=== PATIENT | male | born 1930 | race Caucasian/White ===

== ENCOUNTER → 2016-10-31 | Outpatient (REF) | LOC: ZLAB.WCH 18:14 | DX: Z01.89 Encounter for other specified special examinations (principal) ==

== ENCOUNTER → 2017-09-02 | Outpatient (REF) ==
[2017-09-02 16:53] LABS: THYROID STIMULATING HORMONE 2.62 uIU/mL (0.465-4.680)
[2017-09-02 18:04] LABS: PSA-TOTAL 7.74 ng/mL (0-4)
== END ==
LOC: ZLAB.WCH 16:06
PROVIDERS: Internal Medicine
DX: Z01.89 Encounter for other specified special examinations (principal)
CPT/HCPCS: G0103

== ENCOUNTER → 2018-03-17 | Outpatient (REF) | LOC: ZLAB.WCH 18:13 | DX: Z01.89 Encounter for other specified special examinations (principal) | CPT/HCPCS: G0103 ==

== ENCOUNTER 2019-10-07 00:02 | Inpatient (IN) | payer MEDICARE, OTHER ==
[~2019-10-07] VITALS: Ht 188 cm; Wt 103.1 kg
[2019-10-08] VITALS (13 sets, daily range): BP systolic 91–149; BP diastolic 49–79; PULSE 11–106; TEMP 97.7–99.6
[2019-10-08] MEDS ORDERED: D3-5050000 IU PO (01:13)
[2019-10-08] MEDS ORDERED: PROSCAR 5MG5 MG PO (01:14)
[2019-10-08] MEDS ORDERED: LINZESS145CAP PO ×2 (01:15→01:18)
[2019-10-08] MEDS ORDERED: PRILOSEC 20MG20 MG PO (01:15)
[2019-10-08] MEDS ORDERED: LEXAPRO 5MG5 MG PO (01:16)
[2019-10-08] MEDS ORDERED: ATIVAN 0.50.5 MG/TAB PO (01:16)
[2019-10-08] MEDS ORDERED: MIRALAX PA17 GM/Dose PO (01:16)
[2019-10-08] MEDS ORDERED: XALATAN EYE DROPS OU (01:17)
[2019-10-08] MEDS ORDERED: ASPIRIN 81M81 MG/TA2 PO (01:17)
[2019-10-08] MEDS ORDERED: SYNTHROID0.05 MG/TA PO (01:17)
[2019-10-08] MEDS ORDERED: TYLENOL 325MG325 MG PO (01:18)
[2019-10-08] MEDS ORDERED: MILK OF MA400 MG/52 PO (01:19)
[2019-10-08] MEDS ORDERED: ALMACONE 360 M360 ML PO (01:19)
[2019-10-08] MEDS ORDERED: KAOPECTATE262 MG/15 PO (01:19)
[2019-10-08 01:49] LABS: PH 5 (5-8); URINE APPEARANCE Clear; URINE COLOR Amber
[2019-10-08 01:50] LABS: COLLECTION METHOD CLEAN CATCH; URINE BILIRUBIN Negative (NEGATIVE); URINE BLOOD 1+ (NEGATIVE); URINE GLUCOSE Negative (NEGATIVE); URINE KETONE Negative (NEGATIVE); URINE LEUKOCYTE ESTERASE Negative (NEGATIVE); URINE NITRATE Negative (NEGATIVE); URINE PROTEIN(semi-quant) 1+ (NEGATIVE); URINE UROBILINOGEN Negative (NEGATIVE)
[2019-10-08 01:54] LABS: SQUAMOUS EPITHELIAL None Seen /hpf; URINE BACTERIA Rare /hpf
--- NOTE | 2019-10-08 05:27 | NUR ---
Patient arrived via EMS with daughter following closely behind. Patient noted to be alert to self only and when he arrived is in a lot of pain. 2mg IV morphine adminsitered per Destiny Ann's order. Additional 2mg given d/t no relief with first dose. This was effective. Trivedi catheter placed with paula blood return, then chip urine after this. 16 FR Coude was placed. IV noted to right forearm. IVF continue per orders. Information provided by daughter and paperwork. Daughter states patient has dementia and lives in a memory long term. Patient pleasant with staff and has slept well tonight. Bed alarms on. Will continue to monitor patient.
[2019-10-08 06:26] LABS: BASO % 0.2 % (0.0-2.0); GRAN # 8.8 (1.4-6.5); GRAN % 83.1 % (42.2-75.2); HEMOGLOBIN 14.6 g/dl (13.5-18.0); LYMPH # 0.9 (1.2-3.4); MEAN CELL VOLUME 95 fl (80.0-100.0); MEAN CORPUSCULAR HEMOGLOBIN 32 pg (27.0-31.0); MEAN CORPUSCULAR HGB CONC 33 g/dl (33.0-37.0); MEAN PLATELET VOLUME 9.9 fl (7.4-10.4); MONO # 0.9 (0.1-0.6); MONO % 8.1 % (1.7-9.3); PLATELET COUNT 199 K/mm3 (130-400); RED BLOOD COUNT 4.63 M/mm3 (4.20-5.60)
[2019-10-08 06:41] LABS: ALBUMIN 3.4 gm/dL (3.5-5.0); BILIRUBIN,TOTAL 1.2 mg/dL (0.0-1.0); CALCIUM 9.8 mg/dL (8.4-10.2); CREATININE, serum 1.73 (0.66-1.25); POTASSIUM 4.1 mmol/L (3.4-5.0); TOTAL PROTEIN 6.2 gm/dL (6.4-8.2)
[2019-10-08 06:44] LABS: INR 1.3 (0.8-3.0); PROTHROMBIN TIME 14.2 SECONDS (9.7-12.8)
--- NOTE | 2019-10-08 07:29 | NUR ---
REPORT FROM CRAIG NORRIS.
[2019-10-08 10:04] LABS: PRE ALBUMIN 15.7 mg/dL (17.6-36.0)
--- NOTE | 2019-10-08 11:48 | NUR ---
TELEPHONE CONSENT FOR SURGERY OBTAINED FROM MICHELLE COBB. TWO RNS VERIFIED CONSENT.
--- NOTE | 2019-10-08 12:06 | NUR ---
PATIENT TO SURGERY PER BED WITH GOLDIE. CONSENT ON CHART.
--- NOTE | 2019-10-08 15:33 | NUR ---
The patient is in surgery. ESTHER contacted the patient's daughter Evita, to complete initial intake, left message. ESTHER contacted the patient's son, Doug [phone] to complete inital intake. The patient lives at the [facility] [place]. The patient uses a cane but was needing to transition to a walker. The patient's PCP is Dr. Jacobo and patient receives medications from [facility]. The patient does not have advanced directives in the EMR but Doug states they are completed and designate him and his sister, Evita. ESTHER discussed placement after hospitalization. Doug states that he and Evita spoke about sending the patient to [facility] as first choice. After this discussion Evita contacted ESTHER and second choice is [facility]. Referral sents. [facility] Director reports she would look at the referral and would make a decision on Friday. Awaiting responses.
--- NOTE | 2019-10-08 16:20 | NUR ---
ESTHER attempted to contact DAVINA Baker at [facility] and left a message about referral. Will continue to monitor.
--- NOTE | 2019-10-08 16:28 | NUR ---
PT TO ROOM 327 PER BED WITH REPORT FROM DELON NORRIS PACU @[id number].
--- NOTE | 2019-10-08 17:17 | NUR ---
PT RESTING IN BED PLACED MITS FOR PT PROTECTION HE WAS TRYING TO PULL DRESSING OFF OF HIP.
[2019-10-09] VITALS (7 sets, daily range): BP systolic 108–135; BP diastolic 52–103; PULSE 63–96; TEMP 97.5–98.9
--- NOTE | 2019-10-09 01:53 | NUR ---
PATIENT DOING WELL TONIGHT. WAS VERY DROWSY AT SHIFT CHANGE, FOR THIS REASON ATIVAN WAS HELD. PATIENT BECAME INCREASINGLY AGITATED AROUND 0000 AND ATIVAN WAS THEN GIVEN. PATIENT IS CURRENTLY RESTING CALMLY IN BED. BULKY DRESSING TO L HIP IS CDI. IVF INFUSING TO R FA WITHOUT ISSUE. ORELLANA TO DEPENDENT DRAINAGE DRAINING CLEAR HUA URINE. NO FURTHER NEEDS AT THIS TIME. WILL CONTINUE TO MONITOR.
--- NOTE | 2019-10-09 08:00 | NUR ---
Patient resting in bed at this time. Assisted ortho PA to change dressing on left hip, patient did not tolerate procedure well, administered iv pain medication per order. Trivedi in place draining clear chip urine. IVF continue. Patient refuses PO intake. Bed alarm on, frequent visual checks.
[2019-10-09 08:42] LABS: CREATININE, serum 1.18 (0.66-1.25); POTASSIUM 4.1 mmol/L (3.4-5.0)
[2019-10-09 08:49] LABS: BASO % 0.2 % (0.0-2.0); GRAN # 6.8 (1.4-6.5); GRAN % 75.2 % (42.2-75.2); LYMPH # 1.3 (1.2-3.4); LYMPH % 14.3 % (20.0-51.0); MEAN CELL VOLUME 97 fl (80.0-100.0); MEAN CORPUSCULAR HGB CONC 32 g/dl (33.0-37.0); MEAN PLATELET VOLUME 10.3 fl (7.4-10.4); MONO # 0.9 (0.1-0.6); MONO % 9.7 % (1.7-9.3); PLATELET COUNT 170 K/mm3 (130-400); RED BLOOD COUNT 3.79 M/mm3 (4.20-5.60); REDCELL DISTRIBUTION WIDTH-CV 14.9 % (11.5-14.5)
[2019-10-09 08:52] LABS: HEMATOCRIT 36.8 % (42.0-52.0); HEMOGLOBIN 11.7 g/dl (13.5-18.0); MEAN CORPUSCULAR HEMOGLOBIN 31 pg (27.0-31.0)
--- NOTE | 2019-10-09 15:23 | NUR ---
SW did attempt to fax updates to [facility], however there was only a "in house extension" listed. SW tried calling the number and received a busy signal. Patients daughter Evita [phone] called and inquired about what she needed to do in order to prepare for Patients discharge tomorrow. SW reviewed notes and reported that referrals were sent to [facility] and [facility] bed. Daughter was informed that Sw will continue to follow and provide updates as needed. ESTHER then contacted patients nurse who reported that patient was not a candidate for IPR. Orignal [facility] number provided was not adaquate and so SW contacted [facility] nursing station and was encouraged to fax updates to [phone].
--- NOTE | 2019-10-09 17:49 | NUR ---
Patient has removed several peripherial IVs today, current access is in the left forearm. Patient has recieved PRN pain medication when he appears uncomfortable and says 'ow'. Patient has refused meals today, did eat a few bites of pudding and drank some applejuice, IVF continue. Trivedi remains in place, urine intermittently bloody due to forceful manipulation by patient. Bed alarm on, frequent visual checks, will attempt to get patient to eat again.
[2019-10-10] VITALS (7 sets, daily range): BP systolic 113–137; BP diastolic 61–90; PULSE 64–97; TEMP 97.8–99.1
--- NOTE | 2019-10-10 01:42 | NUR ---
PATIENT IS CONFUSED. DOES NOT RESPOND WELL TO STIMULI. SWINGS HANDS AT STAFF TRYING TO HELP AND TRYS TO PULL AT ORELLANA. MITTS ARE APPLIED. TOOK SCHEDULED MEDICATIONS CRUSHED IN PUDDING. IV MORPHINE GIVEN WHEN PATIENT IS YELLING OUT IN PAIN. PATIENT CONTINUES TO SQUIRM IN BED AND CROSS LEGS EVEN WITH FREQUENT REPOSITIONING. ORELLANA TO DEPENDENT DRAINAGE WITH HUA URINE WITH SEDIMENT NOTED. NO FURTHER NEEDS AT THIS TIME. PATIENT IS RESTING COMFORTABLY AT THIS TIME.
[2019-10-10 07:51] LABS: HEMOGLOBIN 10.6 g/dl (13.5-18.0); MEAN CELL VOLUME 98 fl (80.0-100.0); MEAN CORPUSCULAR HEMOGLOBIN 31 pg (27.0-31.0); MEAN CORPUSCULAR HGB CONC 32 g/dl (33.0-37.0); MEAN PLATELET VOLUME 10.7 fl (7.4-10.4); PLATELET COUNT 160 K/mm3 (130-400)
[2019-10-10 07:59] LABS: HEMATOCRIT 33.3 % (42.0-52.0)
--- NOTE | 2019-10-10 08:00 | NUR ---
Patient resting in bed at this time. Patient is restless and appears to be agitated. Administered pain medication. Attempted to administer PO medications, patient refused the medications and spit them out, will attempt to administer at a later time. Trivedi remains in place draining clear chip urine, IVF continue. Bed alarm on, frequent visual checks.
[2019-10-10 08:02] LABS: CALCIUM 8.8 mg/dL (8.4-10.2); CREATININE, serum 0.96 (0.66-1.25); POTASSIUM 3.9 mmol/L (3.4-5.0)
--- NOTE | 2019-10-10 17:10 | NUR ---
Patient resting in bed at this time. Patient has continued to refuse oral intake today. Bed alarm remains in place, frequent visual checks
--- NOTE | 2019-10-11 01:19 | NUR ---
PATIENT DOING WELL TONIGHT. AROUSES TO STIMULI. FREQUENTLY AGITATED AND HAS MANAGED TO PULL HIMSELF TO SITTING POSITION IN BED WITH LEGS HANGING OFF OF SIDES. PRN MORPHINE GIVEN FOR PAIN PATIENT YELLS OUT IN DISCOMFORT. TEDS APPLIED. IV TO L FA INFUSING LR WITHOUT ISSUE. ORELLANA TO DEPENDENT DRAINAGE WITH HUA URINE WITH CLOTS NOTED. PATIENT DID NOT EAT ANY DINNER. PILLS WERE GIVEN CRUSHED IN PUDDING. TOLERATED THIS OKAY. FREQUENT VISUAL CHECKS, CALL LIGHT WITHIN REACH, BED ALARM ON.
[2019-10-11 04:10] VITALS: BP 115/73; PULSE 73; TEMP 98.2
[2019-10-11 06:27] LABS: BASO % 0.3 % (0.0-2.0); EOS # 0.1 (0.0-0.7); EOS % 1.2 % (0-4.0); GRAN # 4.4 (1.4-6.5); GRAN % 66.8 % (42.2-75.2); HEMOGLOBIN 10.9 g/dl (13.5-18.0); LYMPH # 1.5 (1.2-3.4); LYMPH % 22.9 % (20.0-51.0); MEAN CELL VOLUME 96 fl (80.0-100.0); MEAN CORPUSCULAR HEMOGLOBIN 31 pg (27.0-31.0); MEAN CORPUSCULAR HGB CONC 32 g/dl (33.0-37.0); MEAN PLATELET VOLUME 10.1 fl (7.4-10.4); MONO # 0.5 (0.1-0.6); MONO % 8.3 % (1.7-9.3); PLATELET COUNT 182 K/mm3 (130-400); RED BLOOD COUNT 3.54 M/mm3 (4.20-5.60); REDCELL DISTRIBUTION WIDTH-CV 14.6 % (11.5-14.5)
[2019-10-11 06:37] LABS: HEMATOCRIT 34.1 % (42.0-52.0)
[2019-10-11 06:56] LABS: ALBUMIN 2.7 gm/dL (3.5-5.0); BILIRUBIN,TOTAL 1.2 mg/dL (0.0-1.0); CREATININE, serum 0.84 (0.66-1.25); POTASSIUM 3.3 mmol/L (3.4-5.0); TOTAL PROTEIN 5.4 gm/dL (6.4-8.2)
[2019-10-11 08:08] VITALS: BP 127/85; PULSE 65; TEMP 98.1
--- NOTE | 2019-10-11 08:30 | NUR ---
Patient in bed resting. Confused at baseline. Bed bath and pericare provided. Mitts on. Ecchymosis noted to left hip. Aquacell with drainage present. Dr. Lord in to see patient. Repositioned patient at this time. Trivedi to dependent drainge with chip urine present in bag. Fluids infusing per orders to left forarm IV. Attempted to give patient medications crushed in applesauce without success, patient does not follow instructions. Attempted to get patient to eat breakfast without success. Will continue to monitor.
--- NOTE | 2019-10-11 09:56 | NUR ---
SW faxed updates to [facility].
--- NOTE | 2019-10-11 10:02 | NUR ---
ESTHER attempted to contact Olivia the DON and left message. ESTHER then contacted Odalys she check to see if the referral has been processed. Will continue to follow.
--- NOTE | 2019-10-11 10:22 | NUR ---
Contacted Hanny GUEVARA, patient agitated, pulling at ames catheter attempting to get up out of bed. New order for ativan, medication given. Will continue to monitor.
--- NOTE | 2019-10-11 10:57 | NUR ---
Olivia from [facility] reports they cannot take the patient due to too much dementia. IPR cannot take the patient either. ESTHER contacted Gricelda the nurse at [facility] the [facility]. She reports they can take the patient back with [facility]. Gricelda states the patient had [facility] and could resume with them. ESTHER also discussed sending referrals to other nursing homes for rehab. ESTHER and Gricelda both agreed we should inform the family so they can decide. ESTHER attempted to contact the patient's daughter Evita, left message. ESTHER contacted the patient's son Kirby and spoke with him regarding the denials. Kirby states he and Evita will discuss options then contact ESTHER. Will continue to monitor.
--- NOTE | 2019-10-11 11:22 | NUR ---
The patient's daughter, Evita contacted ESTHER. Evita states she has been in contact the patient's PCP Dr. Jacobo about the patient and his needs. Evita would like to be contacted when the team rounds on the patient. Then she will make a decision. ESTHER informed the patient's nurse. Will continue to monitor.
[2019-10-11 11:41] VITALS: BP 122/59; PULSE 55; TEMP 98.1
[2019-10-11 16:00] VITALS: BP 138/94; PULSE 76; TEMP 97.9
--- NOTE | 2019-10-11 16:49 | NUR ---
Evita contacted ESTHER. The patient is to go back to [facility] the [facility] tomorrow with [facility]. The patient will transition to hospice if he does not respond to PT/OT within a few days. Evita reports that Dr. Jacobo would like the patient to have EMS transport due to the patient's dementia and he would not be safe in the van. ESTHER contacted [facility] and they can transport the patient tomorrow at 1400. Per EMS staff, Due to the necessity insurance should cover the transport. ESTHER contacted Gricelda NORRIS at [facility] and she was agreeable with this time. ESTHER contacted Evita and she was agreeable to this time. ESTHER informed the team. Will continue to follow.
--- NOTE | 2019-10-11 19:32 | NUR ---
Patient has been confused throughout the day. Attempting to get up out of bed pulling on ames catheter and IV line. Medications given per orders. Aquacell to left hip changed due to drainage. Fluids continue infusing per orders. Patient repositioned in bed throughout the day. Ames maintained to dependent drainage with chip urine in bag. Reported off to sales associate cashier.
[2019-10-11 20:02] VITALS: BP 115/69; PULSE 117; TEMP 97.5
[2019-10-12 00:35] VITALS: BP 135/67; PULSE 87; TEMP 96.6
--- NOTE | 2019-10-12 03:23 | NUR ---
Patient has rested well throughout the night. PRN pain medication and ativan given as symptoms arise. Patient noted to be attempting to take his mitts off and was very restless in his bed. Patient now calmed back down and resting well. Trivedi catheter continues to drain clear, yellow urine. Patient is NPO and medications were held at HS. Will continue to monitor patient.
[2019-10-12 05:18] VITALS: BP 130/68; PULSE 71; TEMP 97.8
[2019-10-12 07:47] VITALS: BP 122/79; PULSE 77; TEMP 97.5
--- NOTE | 2019-10-12 08:00 | NUR ---
Patient in bed resting. Assessment confused. IV fluids infusing per orders. Attempted to feed patient applesauce without success. Mitts on. Will continue to monitor.
[2019-10-12 11:46] VITALS: BP 149/69; PULSE 60; TEMP 97.4
[2019-10-12] MEDS ORDERED: RT ALBUTER2.5 MG/0.5 IH (12:47)
[2019-10-12] MEDS ORDERED: ROXANOL 20MG20 MG/ML SL (12:47)
[2019-10-12] MEDS ORDERED: LORAINT SL (12:47)
[2019-10-12] MEDS ORDERED: ATROPINE 2 ML2 ML SL (12:48)
[2019-10-12] MEDS ORDERED: COMPAZINE25 MG/SUPP RC (12:48)
[2019-10-12] MEDS ORDERED: DULCOLAX S10 MG/SUPP RC (12:48)
[2019-10-12] MEDS ORDERED: ARTIFICIAL TEAR15 M7 OP (12:48)
--- NOTE | 2019-10-12 13:06 | NUR ---
A pallative care consult was ordered. Kalyani Cruz, pallative care nurse reports that was decided that the patient would go back to [facility] the [facility] with [facility] today, 10/11. Kalyani sending patient information to [place]. ESTHER contacted the patient's daughter Evita and she was in agreeance with this plan. ESTHER contacted Gricelda Rivas RN at [facility] with the above information. ESTHER contacted María at [facility] and she would like the scripts sent to [facility]. ESTHER informed Hanny CONNELLY. ESTHER contacted [facility] and transport time is at 1500. The team and family were in agreeance with transport time. ESTHER informed Cristal with [facility] and she will terminate HHS for the patient. ESTHER faxed discharge orders. There are no additional needs at this time.
--- NOTE | 2019-10-12 13:30 | NUR ---
Requested by Dr Bagley to call daughter Evita and again review goals of care and what would best support that goal. I did call Evita and spoke with her briefly about reason we are suggesting hospice services be initial plan briefly and then she and Prem called me back and we further discussed what is going on with Evin and what would be his choice of goals. Making this decision is hard for Evita but she clearly verbalizes that hospice care would be her father's choice and I was able to reinforce that she is following her father's wishes. They have already spoken with [facility] and now I am faxing paperwork to them for review. Anticipated discharge now will be at 3pm by EMS to go to [facility] the [facility] with [facility].
--- NOTE | 2019-10-12 13:59 | NUR ---
Copy of referral/records given to Bry with [facility] as FAX did not go through. Planning on dc around 3pm today by EMS.
--- NOTE | 2019-10-12 15:30 | NUR ---
Patient transfering to [facility] the [facility]. Attempted to call report. Patient transfered via EMS. Trivedi maintained to dependent drainage.
== END 2019-10-12 15:30 | disposition hospice, inpatient (51) | DRG 470 ==
LOC: MEDICAL 22:01 → JCC 23:56
PROVIDERS: Nurse Practitioner Family; Orthopaedic Surgery; Physician Assistant; ADMIT Student in an Organized Health Care Education/Training Program
PROC: 0SRS0JZ Replacement of Left Hip Joint, Femoral Surface with Synthetic Substitute, Open Approach (ICD-10-PCS; principal; 2019-10-08 12:30)
DX: S72.002A Fracture of unspecified part of neck of left femur, initial encounter for closed fracture (principal); N17.9 Acute kidney failure, unspecified; F03.91 Unspecified dementia, unspecified severity, with behavioral disturbance; E46 Unspecified protein-calorie malnutrition; Z68.1 Body mass index [BMI] 19.9 or less, adult; I10 Essential (primary) hypertension; E78.5 Hyperlipidemia, unspecified; E03.9 Hypothyroidism, unspecified; K21.9 Gastro-esophageal reflux disease without esophagitis; N18.2 Chronic kidney disease, stage 2 (mild); Z66 Do not resuscitate; Z51.5 Encounter for palliative care; N40.0 Benign prostatic hyperplasia without lower urinary tract symptoms; I12.9 Hypertensive chronic kidney disease with stage 1 through stage 4 chronic kidney disease, or unspecified chronic kidney disease; F03.90 Unspecified dementia, unspecified severity, without behavioral disturbance, psychotic disturbance, mood disturbance, and anxiety; N40.1 Benign prostatic hyperplasia with lower urinary tract symptoms; W19.XXXA Unspecified fall, initial encounter; Y92.129 Unspecified place in nursing home as the place of occurrence of the external cause; R33.8 Other retention of urine; E55.9 Vitamin D deficiency, unspecified; D72.829 Elevated white blood cell count, unspecified; K59.00 Constipation, unspecified; Z79.82 Long term (current) use of aspirin; Z87.891 Personal history of nicotine dependence; Z63.4 Disappearance and death of family member
CPT/HCPCS: 99223-AI; 99232-AI; 99239; A9284; C1776; C9113; J0171; J0690; J2060; J2250; J2270; J2704; J3010; J3480; J7042; J7120